=== PATIENT | female | born 1990 | race Caucasian/White ===

== ENCOUNTER 2017-02-18 23:20 | Inpatient (IN) | payer OTHER ==
[~2017-02-18] VITALS: Ht 162.6 cm; Wt 86.0 kg
[~2017-02-18 23:20] MED LIST: AUGMENTIN875TAB PO; BACITRACIN500 MG/GM OD; MIRENA IU; MOTRIN800 MG/TAB PO; NUVARING VA; PRENATA8 PO; ROBITUSSIN COLD PO; TAM75CAP PO; TYLENOL325 MG PO; ZOFRAN4 MG/TAB PO; [UNRECOGNIZED DRUG - OTHER] PO
[2017-02-19] VITALS (10 sets, daily range): BP systolic 91–129; BP diastolic 42–73
[2017-02-19 00:06] LABS: HEMATOCRIT 40.4 % (37.0-47.0); HEMOGLOBIN 13.8 g/dl (12.0-16.0); IMMATURE GRANULOCYTES 0.4 % (0.0-1.0); MEAN CELL VOLUME 88.2 fL CALC (80.0-100.0); MEAN CORPUSCULAR HGB 30.1 pG CALC (26.0-32.0); MEAN CORPUSCULAR HGB CONC 34.2 g/L CALC (32.0-36.0); NEUT# 9.1 thou/uL (2.00-7.15); RED BLOOD COUNT 4.58 mill/uL (4.20-5.60); RED CELL DISTRI WIDTH 12.3 % (11.5-15.5)
[2017-02-19 00:35] LABS: ALBUMIN 4.7 g/dL (3.2-5.0); ALKALINE PHOSPHATASE 72 u/l (38-126); AMYLASE 40 u/l (30-110); ANION GAP 18 (6-22 (CALC)); BILIRUBIN, TOTAL 0.5 mg/dL (0.0-1.4); BUN 8 mg/dL (7-17); BUN/CREATININE RATIO 10 (12-20 (CALC)); CALCIUM 9.8 mg/dL (8.4-10.2); CARBON DIOXIDE 24 mmol/l (22-30); CHLORIDE 104 mmol/l (95-108); CREATININE 0.8 mg/dL (0.5-1.0); GFR > 60 ML/MIN (>=60 (CALC)); GFR FOR AFR.AMER. > 60 ML/MIN (>=60 (CALC)); GLUCOSE 89 mg/dL (65-105); LIPASE 56 u/l (23-300); POTASSIUM 3.6 mmol/l (3.5-5.1); SGOT/AST 20 u/l (14-36); SGPT/ALT 33 u/l (9-52); SODIUM 142 mmol/l (137-146); TOTAL PROTEIN 8.2 g/dL (6.3-8.2)
[2017-02-19 00:51] LABS: URINE BILIRUBIN - DIPSTICK NEGATIVE (NEGATIVE); URINE BLOOD DIPSTICK SMALL (NEGATIVE); URINE CLARITY CLEAR; URINE COLOR YELLOW; URINE GLUCOSE - DIPSTICK NEGATIVE (NEGATIVE); URINE KETONE NEGATIVE (NEGATIVE); URINE LEUK ESTERASE TRACE (NEGATIVE); URINE NITRITE - DIPSTICK NEGATIVE (Negative); URINE PROTEIN - DIPSTICK NEGATIVE (NEG-TRACE); URINE UROBILINOGEN - DIPSTICK 0.2 E.U./dL (0.2)
[2017-02-19 01:14] LABS: URINE SQUAMOUS EPITHELIAL CELL FEW EPI/hpf (0-FEW); URINE WBC 0-2 WBC/hpf (0-5)
[2017-02-19 04:15] LABS: BARBITURATES NEGATIVE (NEGATIVE); COCAINE NEGATIVE (NEGATIVE); METHADONE NEGATIVE (NEGATIVE); TETRAHYDROCANNABIONOL NEGATIVE (NEGATIVE); TRICYLIC ANTIDEPRESSANTS NEGATIVE (NEGATIVE)
[2017-02-19 04:16] LABS: OXCYCODONE NEGATIVE (NEGATIVE)
[2017-02-20 04:15] VITALS: BP 92/54
[2017-02-20 08:20] VITALS: BP 99/69
[2017-02-20] MEDS ORDERED: OXYCODONE/ACETA1 TA8 PO (09:26)
[2017-02-20] MEDS ORDERED: ZOFRAN4 MG/TAB PO (09:26)
== END 2017-02-20 11:21 | disposition home or self-care (01) | DRG 343 ==
LOC: ED 23:20 → ED-I 02-19 03:00 → ED 02-19 04:18 → MS2 02-19 04:19
PROVIDERS: Emergency Medicine; ADMIT Surgery; ATTEND Surgery
PROC: 0DTJ4ZZ Resection of Appendix, Percutaneous Endoscopic Approach (ICD-10-PCS; principal; 2017-02-19)
DX: K35.80 Unspecified acute appendicitis (principal)
CPT/HCPCS: J2710; S0164

== ENCOUNTER 2018-01-05 20:34 | Emergency (ER) | payer OTHER ==
[~2018-01-05] VITALS: Ht 162.6 cm; Wt 83.2 kg
[~2018-01-05 20:34] MED LIST changes: +OXYCODONE/ACETA1 TA8 PO
[2018-01-05] MEDS ORDERED: CELEXA20 MG PO (20:55)
[2018-01-05] MEDS ORDERED: XANAX1 MG PO (20:55)
[2018-01-05] MEDS ORDERED: MELOXICAM15 MG PO (20:56)
[2018-01-05 21:24] VITALS: BP 120/78
== END 2018-01-05 21:40 | disposition home or self-care (01) | DRG 556 ==
LOC: ED 20:34
DX: M79.604 Pain in right leg (principal); F32.9 Major depressive disorder, single episode, unspecified; F41.9 Anxiety disorder, unspecified; E78.00 Pure hypercholesterolemia, unspecified

== ENCOUNTER 2019-05-16 11:37 | Inpatient (IN) | payer OTHER ==
[~2019-05-16] VITALS: Ht 162.6 cm; Wt 78.5 kg
[~2019-05-16 11:37] MED LIST changes: +CELEXA20 MG PO; +MELOXICAM15 MG PO; +XANAX1 MG PO
--- NOTE | 2019-05-16 12:09 | NUR ---
PATIENT TO ROOM VIA WHEELCHAIR AND PHYSICIAN NOTIFIED OF PATIENT STATUS
[2019-05-16 12:31] LABS: HEMATOCRIT 41.5 % (37.0-47.0); HEMOGLOBIN 13.7 g/dl (12.0-16.0); IMMATURE GRANULOCYTES 0.3 % (0.0-5.0); MEAN CELL VOLUME 89.8 fL CALC (80.0-100.0); MEAN CORPUSCULAR HGB 29.7 pG CALC (26.0-32.0); NEUT# 7.6 thou/uL (2.00-7.15); RED BLOOD COUNT 4.62 mill/uL (4.20-5.60); RED CELL DISTRI WIDTH 12.3 % (11.5-15.5)
[2019-05-16 12:45] LABS: ALBUMIN 4.9 g/dL (3.2-5.0); ALKALINE PHOSPHATASE 60 u/l (38-126); ANION GAP 15 (6-22 (CALC)); BILIRUBIN, TOTAL 0.5 mg/dL (0.0-1.4); BUN 11 mg/dL (7-17); BUN/CREATININE RATIO 15 (12-20 (CALC)); CARBON DIOXIDE 25 mmol/l (22-30); CHLORIDE 104 mmol/l (95-108); CREATININE 0.7 mg/dL (0.5-1.0); GFR > 60 ML/MIN (>=60 (CALC)); GFR FOR AFR.AMER. > 60 ML/MIN (>=60 (CALC)); POTASSIUM 4.8 mmol/l (3.5-5.1); SGOT/AST 21 u/l (14-36); SODIUM 139 mmol/l (137-146); TOTAL PROTEIN 8.6 g/dL (6.3-8.2)
--- NOTE | 2019-05-16 13:05 | NUR ---
PT STATES PAIN IS INCREASEING TO A 8 AT THIS TIME, HURTS WITH MOVEMENT. VSS, AT BEDSIDE.
[2019-05-16 13:35] LABS: URINE BILIRUBIN - DIPSTICK NEGATIVE (NEGATIVE); URINE COLOR YELLOW; URINE GLUCOSE - DIPSTICK NEGATIVE (NEGATIVE); URINE KETONE NEGATIVE (NEGATIVE); URINE LEUK ESTERASE NEGATIVE (NEGATIVE); URINE NITRITE - DIPSTICK NEGATIVE (Negative); URINE PROTEIN - DIPSTICK NEGATIVE (NEG-TRACE); URINE SPECIFIC GRAVITY 1.015; URINE UROBILINOGEN - DIPSTICK 0.2 E.U./dL (0.2)
[2019-05-16 13:36] LABS: URINE BLOOD DIPSTICK TRACE (NEGATIVE)
--- NOTE | 2019-05-16 14:01 | NUR ---
AFTER MORPHINE PT STATES THE PAIN HAS GONE DOWN WHERE SHE CAN CENTRALIZE WHERE THE PAIN IS AT, PUSHING ON LEFT LOWER ABDOMIN AND PELVIC AREA.
--- NOTE | 2019-05-16 14:22 | NUR ---
PT STATES FEELS MUCH BETTER.PAIN DOWN TO A E
--- NOTE | 2019-05-16 15:14 | NUR ---
PT TO ULTRASOUND PER W/C
[2019-05-16] MEDS ORDERED: GABAPENTIN100 MG PO ×2 (16:29)
[2019-05-16] MEDS ORDERED: ADDERALL20 MG PO (16:29)
--- NOTE | 2019-05-16 16:31 | NUR ---
ADVISED PT OF PLAN OF ADMISSION, PT STATES VOICES UNDERSTANDING. PAIN AT A 3 AT THIS TIME. VITAL SIGNS STABLE
--- NOTE | 2019-05-16 17:44 | NUR ---
NURSE UNAVAILABLE TO TAKE REPORT. SHE WILL CALL SOON SHE CAN
--- NOTE | 2019-05-16 18:01 | NUR ---
PT ARRIVED TO THE FLOOR VIA WHEELCHAIR WITH PAUL, PT COMES TO THE TEARFUL AND YELLING ABOUT FOOD SAY SHE HASNT EATEN IN 8 HOURS AND SHE IS STARVING. PT WHEELED TO ROOM AND EXPLAINED REASONING. 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 PT EXPLAINED WHY CLEAR LIQUID DIET. PT CRYING, ATTEMPT TO CALM TO NO AVAIL. PT WALKS WITH STEADY GAIT. NO OTHER NEEDS AT THIS TIME. WILL CONTINUE TO MONITOR.
--- NOTE | 2019-05-16 18:06 | NUR ---
PT TAKEN TO MED SURG PER W/C, VERY UNHAPPY THAT SHE IS TO BE ON CLEAR LIQUIDS. EXPLAINED THE REASON WHY, PT STILL UNHAPPY. RAKESH CORBIN WAS NOTIFIED.
[2019-05-16 18:22] VITALS: BP 120/84
[2019-05-16 19:40] VITALS: BP 113/73
--- NOTE | 2019-05-16 21:17 | NUR ---
ADMISSION ASSESSMENT COMPLETED. UPDATED ON POC AND PT. VERBALIZES UNDERSTANDING. IV SITE PATENT AND ORDERED IVF STARTED. VSS. NO DISTRESS NOTED; RAHUL DE OLIVEIRA APPLIED TO BLE. NO NAUSEA/VOMITING AT THIS TIME. ENCOURAGED TO CALL FOR ANY NEEDS. CALL LIGHT IS IN REACH.
--- NOTE | 2019-05-16 21:53 | NUR ---
PT. C/O LOWER ABDOMINAL/PELVIC PAIN AND MEDICATED WITH ORDERED DILAUDID, WILL REASSESS. FATHER IS IN AT BEDSIDE.
--- NOTE | 2019-05-16 22:46 | NUR ---
DR. LEGGETT IN AT BEDSIDE DISCUSSING SURGICAL OPTIONS FOR PT.. PT. IS NAUSEA AT THIS TIME, MD GIVES OKAY TO GIVE ANTI-EMETIC AT THIS TIME AND IS MEDICATED. PT. AND MD AGREE UPON TRANSFER TO [facility] FOR TOMORROW. PT. IS STILL TO REMAIN NPO AFTER MIDNIGHT.
--- NOTE | 2019-05-17 00:21 | NUR ---
PT. CONTINUES TO C/O NAUSEA AND MEDICATED WITH ORDERED PRN PHENERGAN. DENIES NEEDS FOR PAIN MEDS AT THIS TIME. PT. IS NOW NPO. ENCOURAGED TO CALL FOR ANY NEEDS. CALL LIGHT IS IN REACH. WILL CONTINUE TO MONITOR.
--- NOTE | 2019-05-17 02:20 | NUR ---
PT. RESTING IN BED WITH EYES CLOSED; RESP. EVEN AND UNLABORED, CALL LIGHT IS IN REACH.
[2019-05-17 03:50] VITALS: BP 98/50
--- NOTE | 2019-05-17 04:22 | NUR ---
RESTING IN BED AND DENIES NEEDS. ENCOURAGED TO CALL FOR ANY NEEDS. CALL LIGHT IS IN REACH. WILL CONTINUE TO MONITOR.
--- NOTE | 2019-05-17 05:53 | NUR ---
PT. C/O NAUSEA AND PELVIC PAIN 01/02, MEDICATED WITH ORDERED MORPHINE AND ZOFRAN, WILL REASSESS. IV SITE PATENT AND ORDERED IVF INFUSING WELL AND NEW BAG OF NS HUNG. DENIES FURTHER NEEDS. CALL LIGHT IS IN REACH.
[2019-05-17 07:50] VITALS: BP 89/53
--- NOTE | 2019-05-17 07:50 | NUR ---
ASSESSMENT IS COMPLTED: IV SITE IS FREE FROM REDNESS OR EDEMA. HR IS REG, PULSES ARE STRONG X4, ABD IS SOFT WITH ACTIVE BS. BREATH SOUNDS ARE CLEAR BILATERALLY. CONTINUE TO OBSERVE AND MONITOR.
--- NOTE | 2019-05-17 11:55 | NUR ---
PT IS RESTING IN BED WITH FAMILY IN THE ROOM.
[2019-05-17 11:57] VITALS: BP 111/63
--- NOTE | 2019-05-17 12:00 | NUR ---
PT PICKED UP BY [facility]. FAMILY IN THE ROOM. IV SITE FLUSHED AND PT TOLERATED WELL. CONTINUE TO OSBERVE AND MONITOR.
--- NOTE | 2019-05-17 12:05 | NUR ---
SPOKE WITH ASHLEY GUTIERREZ, AT [facility].
== END 2019-05-17 11:58 | DRG 392 ==
LOC: ED 11:37 → ED-I 13:21 → ED 16:25 → MS2 16:26
PROVIDERS: Family Medicine; ADMIT Surgery; ATTEND Surgery
DX: R19.09 Other intra-abdominal and pelvic swelling, mass and lump (principal); Z97.5 Presence of (intrauterine) contraceptive device; Z90.721 Acquired absence of ovaries, unilateral; Z87.891 Personal history of nicotine dependence
CPT/HCPCS: Q9967

== ENCOUNTER 2021-08-24 08:14 | Emergency (ER) | payer OTHER ==
[~2021-08-24] VITALS: Ht 162.6 cm; Wt 69.0 kg
[~2021-08-24 08:14] MED LIST changes: +ADDERALL20 MG PO; +GABAPENTIN100 MG PO
[2021-08-24] MEDS ORDERED: NEURONTIN300 MG PO (08:50)
[2021-08-24 09:09] LABS: URINE BILIRUBIN - DIPSTICK NEGATIVE (NEGATIVE); URINE BLOOD DIPSTICK MODERATE (NEGATIVE); URINE GLUCOSE - DIPSTICK NEGATIVE (NEGATIVE); URINE KETONE 15 mg/dL (NEGATIVE); URINE LEUK ESTERASE TRACE (NEGATIVE); URINE PROTEIN - DIPSTICK 30 mg/dL (NEG-TRACE); URINE SPECIFIC GRAVITY 1.025
[2021-08-24 09:11] LABS: URINE COLOR ORANGE; URINE NITRITE - DIPSTICK POSITIVE (Negative)
[2021-08-24 09:13] LABS: URINE BACTERIA FEW hpf; URINE EPITHELIAL CELLS MODERATE EPI/hpf (0-FEW)
[2021-08-24 09:29] LABS: HEMATOCRIT 35.8 % (37.0-47.0); HEMOGLOBIN 11.8 g/dl (12.0-16.0); IMMATURE GRANULOCYTES 0.5 % (0.0-5.0); MEAN CORPUSCULAR HGB 30.3 pG CALC (26.0-32.0); NEUT# 12.91 thou/uL (2.00-7.15); RED BLOOD COUNT 3.89 mill/uL (4.20-5.60); RED CELL DISTRI WIDTH 12.3 % (11.5-15.5)
[2021-08-24 09:36] LABS: ALKALINE PHOSPHATASE 61 u/l (38-126); BILIRUBIN, TOTAL 0.6 mg/dL (0.0-1.4); BUN 10 mg/dL (7-17); BUN/CREATININE RATIO 13 (12-20 (CALC)); CARBON DIOXIDE 24 mmol/l (22-30); CHLORIDE 102 mmol/l (95-108); CREATININE 0.8 mg/dL (0.5-1.0); GFR > 60 ML/MIN (>=60 (CALC)); GFR FOR AFR.AMER. > 60 ML/MIN (>=60 (CALC)); LIPASE 16 u/l (23-300); SGOT/AST 27 u/l (14-36); SODIUM 133 mmol/l (137-146); TOTAL PROTEIN 7.4 g/dL (6.3-8.2)
[2021-08-24 09:38] LABS: ANION GAP 11 (6-22 (CALC))
[2021-08-24 09:39] LABS: POTASSIUM 3.6 mmol/l (3.5-5.1)
[2021-08-24] MEDS ORDERED: PERCOCET 5/325M1 TAB PO (12:28)
[2021-08-24] MEDS ORDERED: ZOFRAN4 MG/TAB PO (12:30)
[2021-08-24] MEDS ORDERED: TORADOL PO (12:30)
[2021-08-24 12:41] VITALS: BP 111/70
[2021-08-25] MEDS ORDERED: GABAPENTIN600 MG PO (11:37)
== END 2021-08-24 12:57 | disposition home or self-care (01) ==
LOC: ED 08:14
PROVIDERS: Emergency Medicine
DX: N12 Tubulo-interstitial nephritis, not specified as acute or chronic (principal); K76.0 Fatty (change of) liver, not elsewhere classified; K59.00 Constipation, unspecified; F32.A Depression, unspecified; F41.9 Anxiety disorder, unspecified; E78.00 Pure hypercholesterolemia, unspecified
CPT/HCPCS: Q9967

== ENCOUNTER 2021-08-24 18:58 | Observation (INO) | payer MEDICAID ==
[~2021-08-24] VITALS: Ht 162.6 cm; Wt 69.5 kg
[~2021-08-24 18:58] MED LIST changes: +NEURONTIN300 MG PO; +PERCOCET 5/325M1 TAB PO; +TORADOL PO
[2021-08-24 21:27] LABS: HEMATOCRIT 33.3 % (37.0-47.0); HEMOGLOBIN 10.8 g/dl (12.0-16.0); IMMATURE GRANULOCYTES 0.4 % (0.0-5.0); MEAN CELL VOLUME 93.5 fL CALC (80.0-100.0); MEAN CORPUSCULAR HGB 30.3 pG CALC (26.0-32.0); MEAN CORPUSCULAR HGB CONC 32.4 g/dL CAL (32.0-36.0); NEUT# 14.05 thou/uL (2.00-7.15); RED BLOOD COUNT 3.56 mill/uL (4.20-5.60); RED CELL DISTRI WIDTH 12.5 % (11.5-15.5)
[2021-08-24 21:45] LABS: ALBUMIN 3.4 g/dL (3.2-5.0); ALKALINE PHOSPHATASE 79 u/l (38-126); ANION GAP 12 (6-22 (CALC)); BILIRUBIN, TOTAL 0.5 mg/dL (0.0-1.4); BUN 9 mg/dL (7-17); BUN/CREATININE RATIO 11 (12-20 (CALC)); CARBON DIOXIDE 20 mmol/l (22-30); CHLORIDE 104 mmol/l (95-108); CREATININE 0.8 mg/dL (0.5-1.0); GFR > 60 ML/MIN (>=60 (CALC)); GFR FOR AFR.AMER. > 60 ML/MIN (>=60 (CALC)); LIPASE 23 u/l (23-300); POTASSIUM 3.9 mmol/l (3.5-5.1); SGOT/AST 44 u/l (14-36); SODIUM 132 mmol/l (137-146); TOTAL PROTEIN 6.3 g/dL (6.3-8.2)
[2021-08-25] VITALS (7 sets, daily range): BP systolic 95–119; BP diastolic 51–78
[2021-08-25 06:05] LABS: HEMATOCRIT 30.7 % (37.0-47.0); MEAN CELL VOLUME 93.9 fL CALC (80.0-100.0); MEAN CORPUSCULAR HGB 30.6 pG CALC (26.0-32.0); MEAN CORPUSCULAR HGB CONC 32.6 g/dL CAL (32.0-36.0); RED BLOOD COUNT 3.27 mill/uL (4.20-5.60); RED CELL DISTRI WIDTH 12.5 % (11.5-15.5)
[2021-08-25 06:25] LABS: ANION GAP 8 (6-22 (CALC)); BUN 6 mg/dL (7-17); BUN/CREATININE RATIO 9 (12-20 (CALC)); CARBON DIOXIDE 24 mmol/l (22-30); CHLORIDE 107 mmol/l (95-108); CREATININE 0.7 mg/dL (0.5-1.0); GFR > 60 ML/MIN (>=60 (CALC)); GFR FOR AFR.AMER. > 60 ML/MIN (>=60 (CALC)); POTASSIUM 3.7 mmol/l (3.5-5.1); SODIUM 136 mmol/l (137-146)
[2021-08-25] MEDS ORDERED: GABAPENTIN600 MG PO (11:37)
[2021-08-26 04:30] VITALS: BP 105/73
[2021-08-26 05:51] LABS: HEMATOCRIT 31.1 % (37.0-47.0); HEMOGLOBIN 10.3 g/dl (12.0-16.0); MEAN CELL VOLUME 92.6 fL CALC (80.0-100.0); MEAN CORPUSCULAR HGB 30.7 pG CALC (26.0-32.0); MEAN CORPUSCULAR HGB CONC 33.1 g/dL CAL (32.0-36.0); RED BLOOD COUNT 3.36 mill/uL (4.20-5.60); RED CELL DISTRI WIDTH 12.2 % (11.5-15.5)
[2021-08-26 06:15] LABS: ANION GAP 9 (6-22 (CALC)); BUN 4 mg/dL (7-17); BUN/CREATININE RATIO 6 (12-20 (CALC)); CARBON DIOXIDE 24 mmol/l (22-30); CHLORIDE 109 mmol/l (95-108); CREATININE 0.6 mg/dL (0.5-1.0); GFR > 60 ML/MIN (>=60 (CALC)); GFR FOR AFR.AMER. > 60 ML/MIN (>=60 (CALC)); MAGNESIUM 2.2 mg/dL (1.6-2.3); SODIUM 138 mmol/l (137-146)
[2021-08-26] MEDS ORDERED: OMNICEF300 MG PO (13:35)
[2021-08-26] MEDS ORDERED: ZOFRAN4 MG/TAB PO (13:35)
[2021-08-26] MEDS ORDERED: PERCOCET 5/325M1 TAB PO (13:35)
== END 2021-08-26 14:15 | disposition home or self-care (01) ==
LOC: ED 18:58 → ED-I 21:38 → ED 22:10 → MS2 22:11
PROVIDERS: Nurse Practitioner; ADMIT Hospitalist; ATTEND Hospitalist
DX: N10 Acute pyelonephritis (principal); K59.00 Constipation, unspecified; K76.0 Fatty (change of) liver, not elsewhere classified; F41.9 Anxiety disorder, unspecified; G62.9 Polyneuropathy, unspecified; F32.A Depression, unspecified; E78.00 Pure hypercholesterolemia, unspecified; Z20.822 Contact with and (suspected) exposure to COVID-19; R10.9 Unspecified abdominal pain; R10.32 Left lower quadrant pain; R11.2 Nausea with vomiting, unspecified; N12 Tubulo-interstitial nephritis, not specified as acute or chronic
CPT/HCPCS: G0378; J1650; J2060

== ENCOUNTER 2023-06-22 02:27 | Emergency (ER) | payer MEDICAID ==
[~2023-06-22] VITALS: Ht 162.6 cm; Wt 69.8 kg
[~2023-06-22 02:27] MED LIST changes: +GABAPENTIN600 MG PO; +OMNICEF300 MG PO
[2023-06-22 02:54] LABS: URINE BILIRUBIN - DIPSTICK Negative (NEGATIVE); URINE BLOOD DIPSTICK Moderate (NEGATIVE); URINE GLUCOSE - DIPSTICK Negative (NEGATIVE); URINE KETONE Negative (NEGATIVE); URINE NITRITE - DIPSTICK Negative (Negative); URINE PROTEIN - DIPSTICK 100 mg/dL (NEG-TRACE); URINE UROBILINOGEN - DIPSTICK 0.2 E.U./dL (0.2)
[2023-06-22 02:57] LABS: URINE COLOR Yellow; URINE LEUK ESTERASE Large (NEGATIVE)
[2023-06-22 03:00] LABS: URINE BACTERIA MODERATE hpf; URINE SQUAMOUS EPITHELIAL CELL FEW EPI/hpf (0-FEW); URINE WBC >100 WBC/hpf (0-5)
[2023-06-22 03:19] LABS: BASO% 0.1 % (0-3); EOS% 2.3 % (0-8); HEMATOCRIT 34.6 % (37.0-47.0); HEMOGLOBIN 11.5 g/dl (12.0-16.0); IMMATURE GRANULOCYTES 0.4 % (0.0-5.0); LYMPH% 20.9 % (15-41); MEAN CELL VOLUME 88.5 fL CALC (80.0-100.0); MEAN CORPUSCULAR HGB 29.4 pG CALC (26.0-32.0); MEAN CORPUSCULAR HGB CONC 33.2 g/dL CAL (32.0-36.0); MONO% 8.3 % (2-13); NEUT# 6.19 thou/uL (2.00-7.15); RED BLOOD COUNT 3.91 mill/uL (4.20-5.60)
[2023-06-22 03:32] LABS: ALBUMIN 3.8 g/dL (3.2-5.0); ALKALINE PHOSPHATASE 47 u/l (38-126); ANION GAP 13 (6-22 (CALC)); BILIRUBIN, TOTAL 0.5 mg/dL (0.02-1.3); BUN 9 mg/dL (7-17); BUN/CREATININE RATIO 15 (12-20 (CALC)); CARBON DIOXIDE 23 mmol/l (22-30); CHLORIDE 105 mmol/l (95-108); CREATININE 0.6 mg/dL (0.5-1.0); GFR FOR AFR.AMER. > 60 ML/MIN (>=60 (CALC)); GFR OTHER RACES > 60 ML/MIN (>=60 (CALC)); LIPASE 34 u/l (23-300); POTASSIUM 3.8 mmol/l (3.5-5.1); SGOT/AST 21 u/l (14-36); SODIUM 137 mmol/l (137-146); TOTAL PROTEIN 6.6 g/dL (6.3-8.2)
[2023-06-22] MEDS ORDERED: OMNI-PAC300 MG PO (04:32)
[2023-06-22] MEDS ORDERED: PYRIDIUM200 MG PO (04:32)
[2023-06-22] MEDS ORDERED: DICYCLOMINE HCL20 MG PO (04:32)
[2023-06-22 05:00] VITALS: BP 102/60
== END 2023-06-22 05:21 | disposition home or self-care (01) ==
LOC: ED 02:27
PROVIDERS: Internal Medicine
DX: N39.0 Urinary tract infection, site not specified (principal); B96.20 Unspecified Escherichia coli [E. coli] as the cause of diseases classified elsewhere